=== PATIENT | male | born 1990 | race Caucasian/White ===

== ENCOUNTER 2017-05-12 20:15 | Inpatient (IN) | payer MEDICAID ==
[~2017-05-12] VITALS: Ht 167.6 cm; Wt 74.4 kg
[2017-05-12 21:40] LABS: BASOPHIL % 0.2 % (0-2); PLATELET COUNT 259 x10^3mcL (130-400); RED CELL DISTRIBUTION WIDTH 13.2 % (11.5-14.5)
[2017-05-12 21:46] LABS: CALCIUM 8.8 mg/dL (8.5-10.1); CARBON DIOXIDE 25.5 mmol/L (21-32); CHLORIDE SERUM 104 mmol/L (98-107); GFR1 > 60 mL/min; GLUCOSE SERUM 97 mg/dL (74-106); POTASSIUM SERUM 3.7 mmol/L (3.5-5.1); SODIUM SERUM 139 mmol/L (136-145)
[2017-05-12 21:51] LABS: ALBUMIN 4.3 g/dL (3.4-5.0); ALKALINE PHOSPHATASE 76 U/L (46-116); ALT/SGPT 37 U/L (16-63); AST/SGOT 18 U/L (15-37); BILIRUBIN TOTAL 0.5 mg/dL (0.20-1.00); TOTAL PROTEIN, SERUM 7.5 g/dL (6.4-8.2)
[2017-05-12 23:28] VITALS: BP 107/82
[2017-05-12 23:33] VITALS: BP 107/82
[2017-05-12 23:35] VITALS: Ht 167.6 cm; Wt 74.4 kg
[2017-05-13 00:21] LABS: CHOLESTEROL/HDL RATIO 5.7
[2017-05-13 00:24] LABS: T3 TOTAL 1.28 ng/mL
[2017-05-13 00:26] LABS: FREE T4 1.1 ng/dL (0.76-1.46); FREE THYROXINE INDEX 3.3 ug/dL (1.4-4.5); T4(THYROXINE) 9.7 ug/dL (4.7-13.3)
[2017-05-13 06:03] VITALS: BP 91/43
[2017-05-13 09:25] VITALS: BP 116/69
[2017-05-13 13:48] VITALS: BP 102/52
[2017-05-13 17:33] VITALS: BP 116/49
== END 2017-05-13 17:05 | disposition left against medical advice (07) | DRG 204 ==
LOC: ED 20:15 → DU 22:48
PROVIDERS: Emergency Medicine; ADMIT Family Medicine
DX: R55 Syncope and collapse (principal); E78.2 Mixed hyperlipidemia; S16.1XXA Strain of muscle, fascia and tendon at neck level, initial encounter; Z68.26 Body mass index [BMI] 26.0-26.9, adult; W18.39XA Other fall on same level, initial encounter; Y92.008 Other place in unspecified non-institutional (private) residence as the place of occurrence of the external cause
CPT/HCPCS: 83880; 84439; 97110-GP; J7030; Q0092

== ENCOUNTER 2017-12-18 12:34 | Emergency (ER) | payer MEDICAID ==
[~2017-12-18] VITALS: Ht 167.6 cm; Wt 77.1 kg
[2017-12-18 12:37] VITALS: BP 133/67; Ht 167.6 cm; Wt 77.1 kg
== END 2017-12-18 15:45 | disposition home or self-care (01) ==
LOC: ED 12:34
DX: M54.2 Cervicalgia (principal)
CPT/HCPCS: J1100; J1885